=== PATIENT | male | born 1960 | race Two or more races ===

== ENCOUNTER 2021-08-09 16:57 | Emergency (ER) | payer OTHER, SELFPAY ==
[~2021-08-09] VITALS: Ht 182.9 cm; Wt 124.7 kg
[2021-08-09 17:10] VITALS: BP_SYST 196
--- NOTE | 2021-08-09 17:10 | NUR ---
Pt. bib with laceration to forehead about 2 inches long, got hit by object in trashcan while he was moving trash to street, not actively bleeding, denies any LOC or dizziness
--- NOTE | 2021-08-09 17:30 | NUR ---
HEAD LACERATION IRRIGATED WITH 300ML STERILE SALINE AND DRESSED WITH 4X4 GAUZE. PT FACE CLEANED UP WITH WARM WATER/HYDROGEN PEROXIDE MIXTURE.
[2021-08-09] MEDS ORDERED: DIPH-TET-PERTUS Vaccine 0.5 ML VIAL (ADACEL) I.M. ONE (19:00)
[2021-08-09 19:01] VITALS: BP_SYST 183
--- NOTE | 2021-08-09 19:01 | NUR ---
ER in triage to examining patient.
[2021-08-09] MEDS ORDERED: LIDOCAINE 1% 10 MG/ML, 20 ML MDV INJ ONE (22:00)
--- NOTE | 2021-08-09 22:00 | NUR ---
Patient to ER bed to gown for evaluation. Side rails up. Report given to brooke. herbert schuster at bedside. patient later to be transferred to [facility] for tear duct evaluation by Oculist specialist.
[2021-08-09] MEDS ORDERED: FLUORESCEIN SODIUM 1 MG OPHTHALMIC STRIP OP ONE (22:53)
--- NOTE | 2021-08-10 | NUR ---
Patient resting quietly. No acute distress noted. Vital signs within normal range. awaiting for transportation but unable to locate available ambulance service.
[2021-08-10] MEDS ORDERED: DIPH-TET-PERTUS Vaccine 0.5 ML VIAL (ADACEL) I.M. ONE (00:19)
--- NOTE | 2021-08-10 01:31 | NUR ---
Patient does not wish to proceed with medical care recommended by . Patient given information related to possible complications, up to and including , which could occur as a result of leaving hospital at this time. Patient verbalizes understanding of risks involved leaving against medical advice. Patient has signed AMA form. patient and family tired of waiting (unable to locate ambulance service to transfer patient to [facility]) will drive POV to [facility] in the a.m. MD Lance explaining risk of leaving AMA. Patient and family verbalized understanding of risk. Will f/u at [facility] in the A.M.
== END 2021-08-10 01:31 | disposition left against medical advice (07) ==
LOC: SED 16:57
DX: S01.81XA Laceration without foreign body of other part of head, initial encounter (principal); S01.111A Laceration without foreign body of right eyelid and periocular area, initial encounter; Z20.822 Contact with and (suspected) exposure to COVID-19; W22.8XXA Striking against or struck by other objects, initial encounter; Y93.89 Activity, other specified; Y92.89 Other specified places as the place of occurrence of the external cause; Y99.8 Other external cause status
CPT/HCPCS: 36415; 90715; 99283